=== PATIENT | female | born 1935 | race Caucasian/White ===

== ENCOUNTER 2016-09-18 17:12 | Emergency (ER) | payer MEDICARE, SELFPAY ==
[~2016-09-18 17:12] MED LIST: ARICEPT5 MG PO; ASPIRIN81 MG PO; B-121000 MCG PO; CALCIUM-MAGNES1 EAC1 PO; CARAFATE1 GM PO; CLARITIN10 MG PO; COLACE100 MG PO; FISH OIL 1,0001 EACH PO; FLONASE 0.05% N16 GM; GEODON20 MG PO; ISOSORBIDE MONO60 MG PO; LIPITOR40 MG PO; MECLIZINE HCL25 MG PO; NEURONTIN100 MG PO; NEXIUM40 MG PO; NITROGLYCERIN0.4 MG SL; NORVASC5 MG PO; PLAVIX75 MG PO; POTASSIUM CHLO10 ME1 PO; TRADJENTA5 MG PO; TRIHEXYPHENIDYL2 MG PO; ULTRAM50 MG PO; VITAMIN E400 UNIT PO; ZESTRIL2.5 MG PO
[2016-09-18 19:20] LABS: BASO % 0.4 % (0.1-1.2); EOS # 0.1 10_X3_uL (0.0-0.4); EOS % 1.4 % (0.7-5.8); GRAN # 3.3 10_X3_uL (1.6-6.1); GRAN % 57.1 % (34.0-71.1); HEMATOCRIT 46.6 % (34-45); HEMOGLOBIN 15.2 g/dL (11.2-15.7); LYMPH # 1.9 10_X3_uL (1.2-3.7); LYMPH % 33.7 % (19.3-51.7); MEAN CORPUSCULAR HEMOGLOBIN 31.2 pg (27.0-33.0); MEAN CORPUSCULAR HGB CONC 32.6 g/dL (32.0-36.0); MEAN CORPUSCULAR VOLUME 95.7 fL (79-95); MEAN PLATELET VOLUME 9.8 fl (7.5-11.5); MONO # 0.4 10_X3_uL (0.2-0.9); MONO % 7.4 % (4.7-12.5); PLATELET COUNT 172 x10_3/uL (182-369); RED BLOOD COUNT 4.87 x10_6/uL (3.9-5.2); RED CELL DISTRIBUTION WIDTH 13.6 % (11.7-14.4); WHITE BLOOD COUNT 5.7 x10_3/uL (4.0-10.0)
[2016-09-18 19:36] LABS: ALBUMIN 3.5 gm/dL (3.4-5.0); BILIRUBIN,TOTAL 0.42 mg/dL (0.0-1.0); CALCIUM 9.1 mg/dL (8.7-10.7); CREATININE 1.1 mg/dL (0.6-1.3); POTASSIUM 4.2 mmol/L (3.5-5.1); TOTAL PROTEIN 6.3 gm/dL (6.4-8.2)
[2016-09-18 19:40] LABS: URINE BILIRUBIN NEGATIVE (NEGATIVE); URINE BLOOD NEGATIVE (NEGATIVE); URINE GLUCOSE (UA) NORMAL (NORMAL); URINE KETONE NEGATIVE (NEGATIVE); URINE LEUKOCYTE ESTERASE TRACE (NEGATIVE); URINE NITRATE NEGATIVE (NEGATIVE); URINE PROTEIN 1+ (NEGATIVE); UROBILINOGEN NORMAL mg/dL (<1.0)
[2016-09-18 19:53] LABS: URINE BACTERIA TRACE (NONE SEEN); URINE SQUAMOUS EPITHELIAL CELL 0-10 /[HPF] (NONE SEEN); URINE WBC 0-5 /[HPF] (0-5)
== END 2016-09-18 22:19 | disposition home or self-care (01) ==
LOC: ER 17:12
PROVIDERS: Internal Medicine
DX: E11.65 Type 2 diabetes mellitus with hyperglycemia (principal); R05 Cough; R06.02 Shortness of breath; J98.11 Atelectasis; I10 Essential (primary) hypertension; G30.9 Alzheimer's disease, unspecified; F02.80 Dementia in other diseases classified elsewhere, unspecified severity, without behavioral disturbance, psychotic disturbance, mood disturbance, and anxiety
CPT/HCPCS: 36415; 71010; 80053; 81001; 82009; 83880; 85025; 99070; 99283; 99283-25

== ENCOUNTER 2016-12-16 17:22 | Observation (INO) | payer MEDICARE, OTHER ==
[~2016-12-16] VITALS: Ht 165.1 cm; Wt 110.0 kg
[2016-12-16 18:17] LABS: BASO % 0.5 % (0.1-1.2); EOS # 0.1 10_X3_uL (0.0-0.4); EOS % 1.1 % (0.7-5.8); GRAN # 3.5 10_X3_uL (1.6-6.1); GRAN % 57.2 % (34.0-71.1); HEMATOCRIT 44.3 % (34-45); HEMOGLOBIN 14.7 g/dL (11.2-15.7); LYMPH # 2.1 10_X3_uL (1.2-3.7); LYMPH % 33.4 % (19.3-51.7); MEAN CORPUSCULAR HEMOGLOBIN 31.7 pg (27.0-33.0); MEAN CORPUSCULAR HGB CONC 33.2 g/dL (32.0-36.0); MEAN CORPUSCULAR VOLUME 95.7 fL (79-95); MONO # 0.5 10_X3_uL (0.2-0.9); MONO % 7.8 % (4.7-12.5); PLATELET COUNT 158 x10_3/uL (182-369); RED BLOOD COUNT 4.63 x10_6/uL (3.9-5.2); WHITE BLOOD COUNT 6.2 x10_3/uL (4.0-10.0)
[2016-12-16 18:31] LABS: ALBUMIN 3.6 gm/dL (3.4-5.0); BILIRUBIN,TOTAL 0.47 mg/dL (0.0-1.0); CALCIUM 8.9 mg/dL (8.7-10.7); CREATININE 1.2 mg/dL (0.6-1.3); POTASSIUM 3.7 mmol/L (3.5-5.1); TOTAL PROTEIN 6.2 gm/dL (6.4-8.2)
[2016-12-16 19:14] LABS: URINE BILIRUBIN NEGATIVE (NEGATIVE); URINE BLOOD NEGATIVE (NEGATIVE); URINE GLUCOSE (UA) NORMAL (NORMAL); URINE KETONE NEGATIVE (NEGATIVE); URINE LEUKOCYTE ESTERASE TRACE (NEGATIVE); URINE NITRATE NEGATIVE (NEGATIVE); URINE PROTEIN 1+ (NEGATIVE)
[2016-12-16 19:27] LABS: URINE BACTERIA TRACE (NONE SEEN); URINE MUCUS 1+; URINE RBC 0-5 /[HPF] (0-2); URINE SQUAMOUS EPITHELIAL CELL 0-10 /[HPF] (NONE SEEN); URINE WBC 0-5 /[HPF] (0-5)
[2016-12-17 06:51] LABS: HEMATOCRIT 38.7 % (34-45); HEMOGLOBIN 12.7 g/dL (11.2-15.7); MEAN CORPUSCULAR HEMOGLOBIN 31.8 pg (27.0-33.0); MEAN CORPUSCULAR HGB CONC 32.8 g/dL (32.0-36.0); MEAN CORPUSCULAR VOLUME 96.8 fL (79-95); MEAN PLATELET VOLUME 10.1 fl (7.5-11.5); RED CELL DISTRIBUTION WIDTH 13.7 % (11.7-14.4); WHITE BLOOD COUNT 5.5 x10_3/uL (4.0-10.0)
[2016-12-17 07:04] LABS: CALCIUM 8.1 mg/dL (8.7-10.7); POTASSIUM 3.4 mmol/L (3.5-5.1)
[2016-12-18 07:08] LABS: HEMATOCRIT 40.8 % (34-45); HEMOGLOBIN 13.2 g/dL (11.2-15.7); MEAN CORPUSCULAR HEMOGLOBIN 31.5 pg (27.0-33.0); MEAN CORPUSCULAR HGB CONC 32.4 g/dL (32.0-36.0); MEAN CORPUSCULAR VOLUME 97.4 fL (79-95); MEAN PLATELET VOLUME 9.8 fl (7.5-11.5); RED BLOOD COUNT 4.19 x10_6/uL (3.9-5.2); RED CELL DISTRIBUTION WIDTH 13.9 % (11.7-14.4); WHITE BLOOD COUNT 5.5 x10_3/uL (4.0-10.0)
[2016-12-18 07:35] LABS: CALCIUM 8.9 mg/dL (8.7-10.7); POTASSIUM 3.6 mmol/L (3.5-5.1)
== END 2016-12-18 12:27 | disposition home or self-care (01) ==
LOC: ER 17:22 → MS 20:16
PROVIDERS: General Practice; ADMIT Family Medicine
DX: N39.0 Urinary tract infection, site not specified (principal); E86.0 Dehydration; I25.10 Atherosclerotic heart disease of native coronary artery without angina pectoris; I50.20 Unspecified systolic (congestive) heart failure; R60.0 Localized edema; M54.9 Dorsalgia, unspecified; R10.30 Lower abdominal pain, unspecified; Z83.3 Family history of diabetes mellitus; Z80.9 Family history of malignant neoplasm, unspecified; Z82.49 Family history of ischemic heart disease and other diseases of the circulatory system; Z83.6 Family history of other diseases of the respiratory system; Z79.899 Other long term (current) drug therapy
CPT/HCPCS: 36415; 71010; 71250; 80048; 80053; 80061; 81001; 82962; 83036; 83605; 83880; 85025; 87040; 93005; 93306; 96367; 96372; 96374; 96375; 96376; 99070; 99284; 99284-25; G0378